=== PATIENT | male | born 1985 | race Caucasian/White ===

== ENCOUNTER 2019-09-06 12:55 | Emergency (ER) | payer BC ==
[~2019-09-06] VITALS: Ht 182.9 cm; Wt 90.9 kg
[~2019-09-06 12:55] MED LIST: ULTRAM 50MG TAB50 MG PO; VENTOLIN0.09 MG IH
[2019-09-06 13:38] LABS: EOS # 0.3 (0.04-0.40); HEMATOCRIT 45.7 % (42.0-52.0); HEMOGLOBIN 15.6 g/dL (13.5-18.0); LYMPH# 1.6 (1.50-4.00); MEAN CELL VOLUME 88 fl (78-100); MEAN CORPUSCULAR HEMOGLOBIN 30 pg (27-31); MEAN CORPUSCULAR HGB CONC 34 g/dL (33-37); MEAN PLATELET VOLUME 10.8 fl (7.4-10.4); MONO # 1.1 (0.20-0.80); NEU # 7.4 (1.40-6.50); PLATELET COUNT 178 K/mm3 (130-400); RED CELL DISTRIBUTION WIDTH 12.6 % (11.5-14.5); WHITE BLOOD COUNT 10.4 K/mm3 (4.8-10.8)
[2019-09-06 13:46] LABS: ALBUMIN 4.4 g/dL (3.5-5.0)
[2019-09-06 13:48] LABS: CALCIUM 9.7 mg/dL (8.3-10.5)
[2019-09-06 13:49] LABS: TOTAL PROTEIN 7.7 g/dL (6.4-8.3)
[2019-09-06] MEDS ORDERED: PERCOCET 325 MG1 TA2 PO (14:55)
[2019-09-06] MEDS ORDERED: CEPHALEXIN500 M1 PO (14:55)
[2019-09-06 15:08] VITALS: BP 149/82
[2019-09-06 15:58] LABS: ERYTHROCYTE SEDIMENTATION RATE 21 mm/hr (0-15)
== END 2019-09-06 15:01 | disposition home or self-care (01) ==
LOC: ED 12:55
PROVIDERS: Nurse Practitioner Primary Care
DX: M71.161 Other infective bursitis, right knee (principal)
CPT/HCPCS: J2270; J7030